=== PATIENT | male | born 1935 | race Caucasian/White ===

== ENCOUNTER 2017-09-10 11:07 | Emergency (ER) | payer MEDICARE ==
[~2017-09-10 11:07] MED LIST: ISOVUE-370 76%-LOCM 1 ML ONE
[2017-09-10 11:23] LABS: #Basophils 0.1 thou/uL (0.0-0.2); #Eosinphils 0.2 thou/uL (0.0-0.7); #Monocytes 0.6 thou/uL (0.11-0.59); #Neutrophils 8.5 thou/uL (1.40-6.50); %Basophils 0.6 % (0.0-1.0); %Lymphocytes 9.3 % (21.0-51.0); %Monocytes 5.8 % (0.0-10.0); %Neutrophils 82.4 % (42.0-75.0); Hemoglobin 15.4 g/dL (14.0-18.0); Mean Corpuscular HGB CONC 33.7 g/dL (32.0-36.0); Mean Corpuscular Hemoglobin 31.2 pg (27.0-31.0); Mean Corpuscular Volume 92.6 fl (80.0-94.0); Mean Platelet Volume 7.4 fL (7.4-10.4); Platelet Count 213 thou/uL (130-400); RBC Distribution Width 13.1 % (11.5-14.5); Red Blood Cell (RBC) Count 4.93 mill/uL (4.70-6.10); White Blood Cell (WBC) Count 10.3 thou/uL (4.8-10.8)
[2017-09-10 11:45] LABS: ALT (SGPT) 22 U/L (8-55); AST (SGOT) 25 U/L (5-34); Albumin 4.3 g/dL (3.4-4.8); Alkaline Phosphatase 92 U/L (40-150); Anion Gap 12 mmol/L (10-20); BUN (Urea Nitrogen) 15 mg/dL (8.4-25.7); Bilirubin, Total 0.5 mg/dL (0.2-1.2); Calc. Creatinine Clearance 0 mL/min (70-130); Calcium 9.4 mg/dL (7.8-10.44); Carbon Dioxide 26 mmol/L (23-31); Chloride 104 mmol/L (98-107); Estimated GFR-MDRD 49; Globulin 3.2 g/dL (2.4-3.5); Glucose 131 mg/dL (83-110); Lipase 19 U/L (8-78); Potassium 4.4 mmol/L (3.5-5.1); Protein, Total 7.5 g/dL (5.8-8.1); Sodium 138 mmol/L (136-145)
[2017-09-10 12:12] LABS: CKMB 4.1 ng/mL (0-6.6); Troponin I 0.014 ng/mL (< 0.028)
--- NOTE | 2017-09-10 13:04 | ULT ---
RIGHT UPPER QUADRANT ULTRASOUND: Date: 09/10/17 HISTORY: Abdominal pain, nausea. FINDINGS: The liver demonstrates increased echogenicity consistent with fatty infiltration. There is a 1.5 x 1. 1 x 1.2 cm focal hyperechoic lesion without shadowing in the liver close to the gallbladder. No intra hepatic ductal dilatation is seen. No gallstones, gallbladder wall thickening, or pericholecystic fluid is identified. The common duct m easures 12.0 mm in diameter. The pancreas is not visualized due to overlying bowel gas. No free fluid is seen in Morison's pouch. There is a 2.3 cm cyst in the right kidney. IMPRESSION: 1. Fatty liver. 2. Probable 1.5 cm liver hemangioma. 3. No evidence of cholelithiasis. 4. Right renal cyst. POS: THAIS
[2017-09-10 13:24] LABS: Bilirubin Negative (Negative); Blood, Urine Negative (Negative); Clarity CLEAR (Clear); Glucose, Urine (Dipstick) Negative (Negative); Leukocyte Trace (Negative); Nitrite Negative (Negative); Protein, Urine (Dipstick) Trace mg/dL (Neg-Trace); Specific Gravity, Urine 1.018 (1.002-1.036); Urobilinogen 0.2 mg/dL (0.2-1.0)
[2017-09-10 13:26] LABS: Bacteria/HPF None Seen HPF (None Seen); Hyaline Casts/LPF 0-3 HYALINE CAST LPF (0-3 Hyaline); RBC/HPF 0-3 HPF (0-3); Squamous Epithelial 0-3 HPF (0-3); WBC/HPF 0-3 HPF (0-3)
[2017-09-10] MEDS ORDERED: Acetaminophen/Codeine 30-300mg Tablet ONE (13:55)
--- NOTE | 2017-09-10 15:10 | CT ---
CT ABDOMEN AND PELVIS WITH IV CONTRAST: Date: 09/10/17 HISTORY: Abdominal pain and nausea. Abdominal pain is worse on the right side and radiates down and around low er abdomen. FINDINGS: There is mild scarring in the lung bases. A small bilateral hernia is present. No free air, free flui d, or lymphadenopathy seen in the abdomen or pelvis. The liver, spleen, pancreas, and adrenal glands appear normal. There is a 2.0 cm cyst in the superior pole of the right kidney. There are multiple calculi in the left kidney, the largest measuring about 6.0 mm. No calculi are seen in the ureters or urinary bladder. No hydroureteronephrosis noted on eit her side. No calcified gallstones are seen. There are vascular calcifications without evidence of aneurysmal dilatation of the abdominal aorta. B ilateral fat-containing inguinal hernia are present. A normal appearing appendix is noted. There is p rominence of the wall of the urinary bladder which may be due to incomplete distention or wall thicke phil. Degenerative changes are present in the spine. IMPRESSION: 1. Small hiatal hernia. 2. Right renal cyst. 3. Nonobstructing left renal calculi. 4. No evidence of appendicitis. 5. Incomplete distention versus wall thickening of urinary bladder. POS: TARSHA
== END 2017-09-10 15:35 | disposition home or self-care (01) ==
LOC: ERS 11:07
DX: R10.11 Right upper quadrant pain (principal); R10.31 Right lower quadrant pain; I48.91 Unspecified atrial fibrillation; N40.0 Benign prostatic hyperplasia without lower urinary tract symptoms; Z79.899 Other long term (current) drug therapy
CPT/HCPCS: 74177; 76705; 80053; 81003; 81015; 82553; 83605; 83690; 84484; 85025; 87086; 93005; 94760; 96360

== ENCOUNTER 2018-01-29 17:52 | Observation (INO) | payer MEDICARE ==
[2018-01-29 18:50] LABS: #Basophils 0.1 thou/uL (0.0-0.2); #Eosinphils 0.4 thou/uL (0.0-0.7); #Lymphocytes 1.6 thou/uL (1.20-3.40); #Monocytes 0.6 thou/uL (0.11-0.59); #Neutrophils 5.5 thou/uL (1.40-6.50); %Basophils 0.8 % (0.0-1.0); %Eosinophils 4.5 % (0.0-10.0); %Lymphocytes 19.3 % (21.0-51.0); %Monocytes 7.3 % (0.0-10.0); %Neutrophils 68.2 % (42.0-75.0); Hemoglobin 15.2 g/dL (14.0-18.0); Mean Corpuscular HGB CONC 35.6 g/dL (32.0-36.0); Mean Corpuscular Hemoglobin 31.9 pg (27.0-31.0); Mean Corpuscular Volume 89.8 fL (78.0-98.0); Mean Platelet Volume 7.3 fL (7.4-10.4); Platelet Count 206 thou/uL (130-400); RBC Distribution Width 13.5 % (11.5-14.5); Red Blood Cell (RBC) Count 4.75 mill/uL (4.70-6.10); White Blood Cell (WBC) Count 8.1 thou/uL (4.8-10.8)
[2018-01-29 19:19] LABS: Troponin I Less than 0.010 ng/mL (< 0.028)
[2018-01-29 23:11] LABS: Troponin I 0.016 ng/mL (< 0.028)
[2018-01-30 01:24] VITALS: BMI 26.2
[2018-01-30] MEDS ORDERED: Nitroglycerin 0.4 MG TAB (25 Tab Bottle) SL PRN (01:29)
[2018-01-30] MEDS ORDERED: Ondansetron HCl/PF 4 MG/2 ML Vial IVP PRN (01:30)
[2018-01-30] MEDS ORDERED: Ondansetron ODT 4 MG TAB SL PRN (01:30)
[2018-01-30] MEDS ORDERED: Acetaminophen 325 MG TAB PO PRN (01:46)
[2018-01-30 02:44] LABS: Troponin I Less than 0.010 ng/mL (< 0.028)
[2018-01-30] MEDS: Piperacillin/Tazobactam 3.375 GM in Sodium Chloride 0.9% 100 ML IVPB SCH ×2 (05:15→12:21)
[2018-01-30 05:59] LABS: #Basophils 0.1 thou/uL (0.0-0.2); #Eosinphils 0.4 thou/uL (0.0-0.7); #Lymphocytes 1.7 thou/uL (1.20-3.40); #Monocytes 0.8 thou/uL (0.11-0.59); #Neutrophils 6.1 thou/uL (1.40-6.50); %Basophils 0.7 % (0.0-1.0); %Lymphocytes 18.5 % (21.0-51.0); %Monocytes 8.9 % (0.0-10.0); %Neutrophils 67.9 % (42.0-75.0); Mean Corpuscular HGB CONC 33.3 g/dL (32.0-36.0); Mean Corpuscular Hemoglobin 30.2 pg (27.0-31.0); Mean Corpuscular Volume 90.4 fL (78.0-98.0); Mean Platelet Volume 7.5 fL (7.4-10.4); Platelet Count 207 thou/uL (130-400); RBC Distribution Width 13.6 % (11.5-14.5); Red Blood Cell (RBC) Count 4.98 mill/uL (4.70-6.10)
[2018-01-30 06:11] LABS: Anion Gap 13 mmol/L (10-20); BUN (Urea Nitrogen) 22 mg/dL (8.4-25.7); Calc. Creatinine Clearance 44 mL/min (70-130); Calcium 9.1 mg/dL (7.8-10.44); Carbon Dioxide 25 mmol/L (23-31); Chloride 106 mmol/L (98-107); Estimated GFR-MDRD 44; Glucose 77 mg/dL (83-110); Potassium 4.2 mmol/L (3.5-5.1); Sodium 140 mmol/L (136-145)
--- NOTE | 2018-01-30 06:30 | HP ---
CHIEF COMPLAINT: Heart racing. HISTORY OF PRESENT ILLNESS: This patient is an 82-year-old male who states that he has been feeling episodes of tiredness for about 1 week. He states he has been paying more attention to it over the l ast couple of days. With these episodes that tend to come and go he does not have any chest pain, sh ortness of breath or lightheadedness, but does feel some mild dizziness and some discomfort in his ja w and the back of his neck. He was living with this, but today he had some sensation that his heart was racing when he woke up. Apparently it settled down and he went on to try some breakfast and afte r he left the restaurant his symptoms recurred, so he presented to the emergency department in [facility]. The patient also reports that a couple of days ago he had some dark stools and states that happened a gain yesterday. In questioning the patient, it is clear that his stools were not actually black, but were just simply dark brown. He denies any abdominal pain, cramping or changes in his bowel habits. The patient did present to the emergency department in [place] where a digital rectal exam pro duced guaiac positive stool. REVIEW OF SYSTEMS: The patient has some issues with urinary frequency causing some sleep disturbance . He reports that he feels like he has to work harder to swallow, but denies any aspiration, coughin g or choking. He does have the above-mentioned palpitations and some occasional lower extremity asia a. He has a mild cough related to some sinus drainage. Occasionally, has felt a little short of maritza ath with the above symptoms. Occasionally, has little wheezing. He does have some urinary frequency and nocturia every 2 hours, which is longstanding for him. He also reports occasional tingling in h is hands and feet. Other than that the patient's 10 system review is negative except for those thing s mentioned in the history of present illness. PAST MEDICAL HISTORY: Notable for a pacemaker placement. His diplomatic interpreter is Dr. Camacho Mcclure. He reports that he has no known coronary disease and had a stress test a couple years ago prior to e pacemaker placement. He has BPH and urethral strictures for which he dilates himself from time to time. He also reports that he had a colonoscopy a couple years ago that was fine as well. PAST SURGICAL HISTORY: Laparoscopic Gildardo fundoplication and TURP x2. FAMILY HISTORY: Father at 96. Mother at 94. SOCIAL HISTORY: The patient is a nonsmoker, nondrinker, nondrug user. He is a . His surroga te decision maker would be his son, Christian. CODE STATUS: Full code. PHYSICAL EXAMINATION: VITAL SIGNS: Temperature 98.3, pulse 71, respirations 16, O2 sat 98% on room air, BP is 176/98, rose chris, his blood pressures in the emergency department actually ranged from 92-136 systolic. GENERAL APPEARANCE: Age appropriate male. He is awake, alert, oriented, pleasant and cooperative, i n no distress. HEENT: PERRL. No OP lesions. NECK: Supple and symmetric without lymphadenopathy. CARDIOVASCULAR: Regular rate and rhythm without murmurs, gallops or rubs. CHEST: Lungs are clear to auscultation bilaterally. Good chest wall expansion and air exchange. ABDOMEN: Soft, nontender, nondistended. He does have a ventral hernia. There are no masses palpabl e. No organomegaly. EXTREMITIES: Warm and dry with no edema. LABORATORY DATA: White blood cell count 7.5, hemoglobin 15.1, platelets 215. INR was 1.4, PTT 37. Chemistries notable for a creatinine of 1.69, which is above his prior reading of 1.48 on 01/26/2018. In [place] his troponin level was 2.567. TSH was 4. Urinalysis shows greater than 50 to too numerous to count white blood cells, 4+ bacteria, moderate leukocyte esterase. Again, the Hemoccult from [place] [facility] was positive. Chest x-ray shows borderline vascular congestio n. ASSESSMENT AND PLAN: 1. Palpitations. The patient had some tachycardia subjectively. That has appeared to have resolved at this point. He has a pacemaker and will ask for interrogation. In the meantime, keep him on a t elemetry monitor. 2. Elevated troponin. This appears to be spurious as the patient had an elevated troponin in [facility], but since coming to our emergency department here, he has had 2 subsequent levels that were w ell within the normal range. We will check a third and continue him on the court monitor as well . 3. Heme positive stools. The patient reported dark, but not black stools. He does have a history o f a Gildardo fundoplication and certainly may have some upper gastrointestinal bleeding, but has no anand dence of drop in hemoglobin or GI symptoms to suggest that he is bleeding briskly in any way. The rachael bhakta is on Xarelto, which certainly increases the risk of some minor bleeding. We will continue to monitor his hemoglobin. 4. Benign prostatic hypertrophy with some urethral stricture. The patient has a self-dilator that vanessa mclaughlin uses from time to time. He indicated that he actually uses a toothpick to help get it initially in sert and certainly has some risk of developing urinary tract infection from the instrumentation. Vanessa mclaughlin received a dose of Zosyn in the emergency department in [place] and we will continue that. Benjamin whitaker to follow up on cultures from [place].
[2018-01-30] MEDS ORDERED: hydrALAZINE 20 MG/ML VIAL SLOW IVP PRN (13:14)
[2018-01-30] MEDS ORDERED: cloNIDine 0.1 MG TAB PO PRN (13:14)
--- NOTE | 2018-01-30 14:36 | PDOC.PN ---
- Subjective Encounter Start Date: 01/30/18 Encounter Start Time: 14:34 Subjective: c/o weakness and palpitations on and off. only marginally better -: PPM shows repeted A-fib w RVR - Objective Resuscitation Status: Resuscitation Status FULL:Full Resuscitation MAR Reviewed: Yes Vital Signs & Weight: Vital Signs (12 hours) Temp Pulse Resp BP BP Pulse Ox 01/30/18 12:20 97.7 F 70 20 177/99 H 100 01/30/18 09:50 81 174/101 H 01/30/18 08:26 97.5 F L 74 20 01/30/18 07:31 97.5 F L 74 20 185/100 H 100 01/30/18 05:15 98.0 F 71 16 129/100 H 98 Weight Weight 183 lb 1.6 oz I&O: 01/29/18 01/30/18 01/31/18 06:59 06:59 06:59 Intake Total 200 100 Output Total 400 Balance -200 100 Result Diagrams: 01/30/18 01:42 01/30/18 01:42 Additional Labs: Laboratory Tests 09/10/17 01/26/18 01/29/18 11:13 16:42 15:00 Creatinine 1.38 H 1.48 H 1.69 H 01/30/18 01:42 Creatinine 1.53 H labs reviewed Phys Exam - Physical Examination Constitutional: NAD HEENT: PERRLA, moist MMs, sclera anicteric, oral pharynx no lesions Neck: no nodes, no JVD, supple, full ROM Respiratory: no wheezing, no rales, no rhonchi, clear to auscultation bilateral Cardiovascular: RRR, no significant murmur, no rub Gastrointestinal: soft, non-tender, no distention, positive bowel sounds Musculoskeletal: no edema, pulses present Neurological: non-focal, normal sensation, moves all 4 limbs Psychiatric: normal affect, A&O x 3 Skin: no rash Dx/Plan (1) Paroxysmal atrial fibrillation with rapid ventricular response Code(s): I48.0 - PAROXYSMAL ATRIAL FIBRILLATION Status: Acute (2) Near syncope Status: Acute (3) UTI (urinary tract infection) Status: Acute (4) Chronic anticoagulation Code(s): Z79.01 - USP (CURRENT) USE OF ANTICOAGULANTS Status: Chronic (5) BPH (benign prostatic hyperplasia) Code(s): N40.0 - BENIGN PROSTATIC HYPERPLASIA WITHOUT LOWER URINRY TRACT SYMP Status: Chronic - Plan continue antibiotics, PT/OT, out of bed/ambulate, DVT proph w/SCDs H/H stable.armand hemorroidal bleed.FOBT not very sensistive for GI bleed -: will consult Cardiology for a-fib w RVR.cont amiodarone,Digoxin,xarelto -: OT,PT eval. -: cont flomax and proscar.check orthostatics -: am labs. If stable.DC in am * . Review of Systems - Review of Systems Constitutional: weakness, malaise. negative: fever, chills, sweats, other Respiratory: negative: Cough, Dry, Shortness of Breath, Hemoptysis, SOB with Excertion, Pleuritic Pain, Sputum, Wheezing Cardiovascular: negative: chest pain, palpitations, orthopnea, paroxysmal nocturnal dyspnea, edema, light headedness, other Gastrointestinal: negative: Nausea, Vomiting, Abdominal Pain, Diarrhea, Constipation, Melena, Hematochezia, Other Genitourinary: negative: Dysuria, Frequency, Incontinence, Hematuria, Retention , Other Musculoskeletal: negative: Neck Pain, Shoulder Pain, Arm Pain, Back Pain, Hand Pain, Leg Pain, Foot Pain, Other Skin: negative: Rash, Lesions, Jalen, Bruising, Other Neurological: negative: Weakness, Numbness, Incoordination, Change in Speech, Confusion, Seizures, Other - Medications/Allergies Allergies/Adverse Reactions: Allergies Allergy/AdvReac Type Severity Reaction Status Date / Time atorvastatin Allergy Unknown Verified 01/30/18 03:50 Uyzhkeb-Uyb-Ark Reductase Allergy Unknown Verified 01/30/18 03:50 Inhibitor Medications: Current Medications Acetaminophen (Tylenol) 650 mg PO Q4H PRN PRN Reason: Headache/Fever or Pain Amiodarone HCl (Cordarone) 200 mg PO TID BOOKER Clonidine (Catapres) 0.1 mg PO Q4H PRN PRN Reason: SBP>160 Digoxin (Lanoxin) 0.125 mg PO HS BOOKER Finasteride (Proscar) 5 mg PO HS BOOKER Hydralazine HCl (Apresoline) 10 mg SLOW IVP Q4H PRN PRN Reason: SBP>170 Piperacillin Sod/Tazobactam (Sod 3.375 gm/ Sodium Chloride) 100 mls @ 200 mls/ hr IVPB Q6HR [facility] Last Admin: 01/30/18 12:21 Dose: 100 mls Metoprolol Succinate (Toprol Xl) 25 mg PO NOW BOOKER Stop: 01/30/18 16:00 Metoprolol Succinate (Toprol Xl) 25 mg PO DAILY BOOKER Rivaroxaban (Xarelto) 20 mg PO HS [facility] Sodium Chloride (Flush - Normal Saline) 10 ml IVF PRN PRN PRN Reason: Saline Flush Tamsulosin HCl (Flomax) 0.4 mg PO HS BOOKER
[2018-01-30] MEDS ORDERED: Amiodarone 200 MG TAB PO SCH ×2 (15:00→21:00)
[2018-01-30 15:38] VITALS: BP 135/75; TEMP 97.5
--- NOTE | 2018-01-30 16:23 | CON ---
DATE OF CONSULT: 01/30/18 The patient is a pleasant 82-year-old gentleman who presents for evaluation of palpitations and weakn ess. The patient has apparent history of atrial fibrillation. He is on chronic anticoagulation ther apy. He also has a history of a pacemaker placement. The patient states approximately a week ago st arted feeling weak and tired. He noted that at times that his pulse had been very rapid. He went to the emergency room for further evaluation. The patient not have any chest pain or dyspnea. The pat ient was noted to have an elevated troponin level and sent for further evaluation. PAST MEDICAL HISTORY: Significant for: 1. Atrial fibrillation. 2. Hypertension. 3. Benign prostatic hypertrophy. PAST SURGICAL HISTORY: He has had a Gildardo fundoplication and TURP. SOCIAL HISTORY: Nonsmoker, does not consume alcohol. FAMILY HISTORY: No strong family history of coronary artery disease. ALLERGIES: STATIN therapy. MEDICATIONS ON ADMISSION: He takes amiodarone 200 daily, Xarelto 20 daily, finasteride 5 daily, digo mario alberto 0.125 daily, Flomax 0.4 daily. REVIEW OF SYSTEMS: Ten-point system otherwise unremarkable. No history of bright red blood per rect um, dysuria or hematuria. PHYSICAL EXAMINATION: GENERAL: This is a well-developed gentleman in no acute distress with a blood pressure 177/99. NECK: Showed no jugular distention, no carotid bruits. LUNGS: Clear to auscultation. HEART: Regular rate and rhythm, normal S1, S2, no murmurs. ABDOMEN: Distended. EXTREMITIES: Showed no edema. Varicose veins were noted. SKIN: Warm and dry. NEUROLOGIC: Nonfocal. VASCULAR: Radial pulses are 2+. LABORATORY DATA: White blood count 9.0, hemoglobin 15.0, hematocrit 45.0 and his platelets were 207. Sodium 140, potassium 4.2, chloride 106, carbon dioxide 25, BUN 22, creatinine 1.53. Troponin less than 0.01. His EKG revealed an electronic atrial pacemaker with a nonspecific interventricular cond uction delay. IMPRESSION: 1. Paroxysmal atrial fibrillation with rapid ventricular response. 2. Elevated troponin level with normal MB. 3. History of electronic pacemaker. 4. Hypertension. 5. Urinary tract infection. This gentleman presents with very symptomatic atrial fibrillation. He is on amiodarone therapy. Wou ld recommend increasing the dose of this medication. We will also add a low dose of Toprol to try to decrease the incidence he is in atrial fibrillation. Interrogation of his pacemaker is having frequ ent atrial fibrillation. In addition, he had an elevated troponin level, but a repeat showed no daiana vation with normal CK-MB. The patient can follow up with his primary bullard machine operator, Dr. Mcclure. PLAN: 1. Increase amiodarone to 200 t.i.d. 2. Add low dose beta jonathan therapy. I will follow this patient with you through his hospitalizati on.
[2018-01-30] MEDS ORDERED: Tamsulosin HCl 0.4 MG CAP PO SCH (21:00)
[2018-01-30] MEDS ORDERED: Finasteride 5 MG TAB PO SCH (21:00)
[2018-01-30] MEDS ORDERED: Digoxin 0.125 MG TAB PO SCH (21:00)
[2018-01-30] MEDS ORDERED: Rivaroxaban 10 MG TAB PO SCH (21:00)
--- NOTE | 2018-01-31 02:54 | DIS ---
DATE OF ADMISSION: 01/29/2018 DATE OF DISCHARGE: 01/30/2018 CONDITION AT THE TIME OF DISCHARGE: Stable and improved. PRIMARY CARE PHYSICIAN: Elbert Mehta D.O. PRIMARY ENVIRONMENTAL MANAGER: Dr. Mcclure. DISCHARGE DIAGNOSES: 1. Atrial fibrillation with rapid ventricular rate. 2. Elevated troponin level secondary to #1. 3. History of electronic pacemaker. 4. Hypertension. 5. Urinary tract infection. DISCHARGE MEDICATIONS: Amiodarone 200 mg p.o. daily, levofloxacin 500 mg p.o. daily, and metoprolol succinate 25 mg daily. He is to resume his digoxin 0.125 mg daily, and tamsulosin 0.4 mg daily, yeny steride 5 mg daily, and Xarelto 20 mg daily. Please note that the amiodarone dose has been increased to 200 mg daily, 200 mg 3 times a day. CONSULTATIONS: Cardiology, Dr. Barnard. HISTORY OF PRESENTING ILLNESS: Mr. Ramirez is a very pleasant 82-year-old male with past medical hist ory of atrial fibrillation on chronic anticoagulation as well as history of pacemaker placement, BPH, and hypertension, who recently moved to the area: presented to the emergency room with complaints of palpitation and generalized weakness. He also had complaints of some dark stools and FOBT was posit herbert in the ER. His EKG did not show any arrhythmias at the time of presentation. He was admitted to telemetry for further evaluation. Please see admission history and physical for further detail. He was found to have a urinary tract infection as well for which he was started on IV antibiotic and ur ine was sent for culture. HOSPITAL COURSE: The patient's pacemaker was interrogated and was found to have paroxysmal atrial fi brillation with RVR intermittently. He was seen by Cardiology, Dr. Barnard, who adjusted his medica tions. He was in sinus rhythm throughout his hospitalization otherwise. His amiodarone dose was inc reased and he was started on metoprolol. H&H remained stable. Cardiac enzymes were trended and were negative. The patient was cleared by Cardiology for discharge. At this time, he does not have any evidence of gastrointestinal bleed. Xarelto was not held. He most likely has hemorrhoidal bleed. I have instru cted him to keep an eye on his stools and return to the emergency room if he notices any bright red b lood in his stools or any melena. He verbalized understanding. He is instructed to follow up with his own corporate executive, Dr. Mcclure as soon as possible. He was seen and examined prior to discharge. Please see hospitalist progress note from today's date for further detail. Note to the primary care physician, please follow up the results of the urine culture for sensitivity results.
== END 2018-01-30 17:06 | disposition home or self-care (01) ==
LOC: ERS 17:52 → 2SW 21:00
PROVIDERS: ADMIT Internal Medicine; ATTEND Internal Medicine
DX: I48.0 Paroxysmal atrial fibrillation (principal); R79.89 Other specified abnormal findings of blood chemistry; R19.5 Other fecal abnormalities; N40.0 Benign prostatic hyperplasia without lower urinary tract symptoms; N35.9 Urethral stricture, unspecified; I10 Essential (primary) hypertension; N39.0 Urinary tract infection, site not specified; Z79.01 Long term (current) use of anticoagulants; Z79.899 Other long term (current) drug therapy; Z88.8 Allergy status to other drugs, medicaments and biological substances
CPT/HCPCS: 80048; 84484 ×2; 85025 ×2; 86850; 86900; 86901; 87086; 93005; 94760; 96365; 96366; 99285; G0378; 36415; J2543; J7050

== ENCOUNTER 2018-02-20 14:53 | Outpatient (CLI) | payer MEDICARE | END 2018-02-20 14:54 | disposition home or self-care (01) | LOC: BICULT 14:53 | PROVIDERS: ATTEND Internal Medicine Nephrology | DX: N18.9 Chronic kidney disease, unspecified (principal) | CPT/HCPCS: 76770 ==

== ENCOUNTER 2018-07-23 10:44 | Outpatient (CLI) | payer MEDICARE ==
--- NOTE | 2018-07-23 12:33 | ULT ---
RENAL ULTRASOUND: INDICATION: Benign prostatic hypertrophy. The right kidney measures 12.4 cm length. The left kidney measures 10.1 cm length. No hydronephrosi s. Small cyst superior pole right kidney measures 2.0 cm. The bladder is mildly distended. There i s mild bladder wall thickening. The prevoid bladder volume was recorded at 141 cc. IMPRESSION: 1. Small right renal cyst. 2. Mild bladder thickening. POS: [facility]
== END 2018-07-23 10:45 | disposition home or self-care (01) ==
LOC: BICULT 10:44
PROVIDERS: ATTEND Urology
DX: N40.1 Benign prostatic hyperplasia with lower urinary tract symptoms (principal); N99.115 Postprocedural fossa navicularis urethral stricture; N28.1 Cyst of kidney, acquired; N32.89 Other specified disorders of bladder
CPT/HCPCS: 76770

== ENCOUNTER 2018-11-22 13:22 | Outpatient (CLI) | payer MEDICARE | END 2018-11-22 13:23 | disposition home or self-care (01) | LOC: ULT 13:22 | PROVIDERS: ATTEND Family Medicine | DX: R79.89 Other specified abnormal findings of blood chemistry (principal); R53.83 Other fatigue; I08.8 Other rheumatic multiple valve diseases | CPT/HCPCS: 93306 ==

== ENCOUNTER 2018-12-24 16:35 | Outpatient (CLI) | payer MEDICARE ==
[2018-12-24 17:48] LABS: Hemoglobin 14.3 g/dL (14.0-18.0); Mean Corpuscular HGB CONC 34.3 g/dL (32.0-36.0); Mean Corpuscular Hemoglobin 31.3 pg (27.0-31.0); Mean Corpuscular Volume 91.4 fL (78.0-98.0); Mean Platelet Volume 7.2 fL (7.4-10.4); Platelet Count 224 thou/uL (130-400); RBC Distribution Width 13.2 % (11.5-14.5); Red Blood Cell (RBC) Count 4.58 mill/uL (4.70-6.10); White Blood Cell (WBC) Count 7.4 thou/uL (4.8-10.8)
[2018-12-24 17:54] LABS: INR-International Normal Ratio 1.5; PTT 32.4 SEC (22.9-36.1); Prothrombin Time 17.7 SEC (12.0-14.7)
[2018-12-24 18:05] LABS: Anion Gap 14 mmol/L (10-20); BUN (Urea Nitrogen) 20 mg/dL (8.4-25.7); Calc. Creatinine Clearance 0 mL/min (70-130); Carbon Dioxide 27 mmol/L (23-31); Chloride 103 mmol/L (98-107); Estimated GFR-MDRD 46; Glucose 85 mg/dL (83-110); Potassium 4.1 mmol/L (3.5-5.1); Sodium 140 mmol/L (136-145)
== END 2018-12-24 16:36 | disposition home or self-care (01) ==
LOC: LABBT 16:35
PROVIDERS: ATTEND Urology
DX: Z01.818 Encounter for other preprocedural examination (principal); N40.1 Benign prostatic hyperplasia with lower urinary tract symptoms; R33.9 Retention of urine, unspecified; N48.6 Induration penis plastica; N99.115 Postprocedural fossa navicularis urethral stricture; N20.0 Calculus of kidney; I48.0 Paroxysmal atrial fibrillation; R35.1 Nocturia; Z78.9 Other specified health status
CPT/HCPCS: 80048; 81001; 85027; 85610; 85730; 87077; 87086; 87186; 93005; 93010

== ENCOUNTER 2019-01-02 11:37 | Outpatient (CLI) | payer MEDICARE ==
--- NOTE | 2019-01-02 14:34 | CT ---
ABDOMEN CT WITHOUT CONTRAST PELVIC CT WITHOUT CONTRAST: COMPARISON: 09/10/2017. HISTORY: Renal calculi. Difficulty urinating. The patient had recent catheterization. Small renal calculus. FINDINGS: ABDOMEN CT: Chronic changes in the middle lobe, lingula, and both lower lobes. Heart size is within normal limit s. No significant pericardial fluid. The descending thoracic aorta and abdominal aorta have atheros clerotic disease. No aneurysm or periaortic fat stranding. Limited evaluation of the solid organs due to lack of IV contrast. Relatively no solid organ abnorma lity. No gastrohepatic, retrocrural, or periportal lymphadenopathy. No mesenteric mass, lymphadenopathy, free air, or free fluid. Calcification of the right renal pelvis may be due to atherosclerotic disease or possibly a partially calcified renal artery aneurysm. There is a stable calcification in the upper pole of the left kidn ey measuring 0.4 cm. There is a 2nd 4 mm calculus in the mid pole of the left kidney. Hypodensity i n the upper pole of the right kidney has an attenuation coefficient of 7 Hounsfield units compatible with a 1.4 cm cyst. Bilaterally, no hydronephrosis or significant perinephric fat stranding. Bilate ral ureters have a normal caliber. No hydroureter, periureteral fat stranding, or ureterolithiasis. No mesenteric mass, lymphadenopathy, free air, or free fluid. Limited evaluation of the alimentary canal by lack of oral contrast. No evidence of bowel obstructio n. Ileocecal junction is normal. Normal caliber appendix. Scattered fecal material in a nondistend ed, nondilated colon. Diverticulosis, without evidence of diverticulitis. CT PELVIS: No mass, lymphadenopathy, free air, or free fluid. Early catheter decompresses the urinary bladder. IMPRESSION: 1. Nonobstructing calculi in the left kidney. 2. Bilaterally, no evidence of obstructive uropathy. 3. Simple cyst emanating from the upper pole of the right kidney. POS: OFF
== END 2019-01-02 11:38 | disposition home or self-care (01) ==
LOC: BICCT 11:37
PROVIDERS: ATTEND Urology
DX: N20.0 Calculus of kidney (principal); N28.1 Cyst of kidney, acquired
CPT/HCPCS: 74176

== ENCOUNTER 2019-01-09 07:32 | Day surgery (SDC) | payer MEDICARE ==
[2018-12-24 16:53] VITALS: BMI 27.2
[2019-01-09] MEDS ORDERED: Sodium Chloride 0.9% 100 ML ONE (09:03)
[2019-01-09] MEDS ORDERED: cefTRIAXone\\ROCEPHIN 2 GM VIAL ONE (09:03)
[2019-01-09 09:41] LABS: INR-International Normal Ratio 0.9; Prothrombin Time 12.6 SEC (12.0-14.7)
[2019-01-09] MEDS ORDERED: Fentanyl 100 MCG/2 ML VIAL ONE (09:46)
[2019-01-09] MEDS ORDERED: Hyoscyamine Sulfate SL 0.125 mg Tablet ONE (09:58)
[2019-01-09] MEDS ORDERED: Iothalamate Meglumine 60% 50 ML VIAL FS ONE (09:59)
--- NOTE | 2019-01-09 11:48 | OP ---
DATE OF PROCEDURE: 01/09/2019 PREOPERATIVE DIAGNOSES: 1. An 83-year-old male with history of transurethral resection of the prostate in the remote past with recurrent fossa navicularis, bulbar urethral stricture. 2. History of multiple urethral stricture dilatation with recurrence. POSTOPERATIVE DIAGNOSES: 1. An 83-year-old male with history of transurethral resection of the prostate in the remote past with recurrent fossa navicularis, bulbar urethral stricture. 2. History of multiple urethral stricture dilatation with recurrence. PROCEDURE PERFORMED: Cystoscopy, urethral stricture dilatation, dilation of fossa navicular stricture with Redkey sounds, 18-Finnish 10 mL urethral Early catheter placement to leg bag, gravity bag, 22-Finnish 10 mL Councill tip suprapubic tube placement. ANESTHESIA: LMA. COMPLICATIONS: None apparent. ESTIMATED BLOOD LOSS: Minimal/none. INTRAOPERATIVE FINDINGS: 1. Fossa navicularis stricture, diffuse urethral fibrosis, multiple bulbar proximal penile urethral stricture caliber approximately 14-Finnish to 10-Finnish. 2. TUR defect with no evidence of bladder neck contracture, left lateral regrowth adenoma, minimally obstructing. 3. Bladder grossly unremarkable. INDICATIONS FOR PROCEDURE AND HISTORY: Mr. Ramirez is an 83-year-old male, who recently transferred care from Dr. Garcia. The patient has undergone multiple urethral stricture dilatation with recurrence. He was told to cath himself 3 to 4 times a day, however, has to struggle to get the catheter in. I recently saw the patient, had significant difficulty passing a 14-Finnish catheter as his meatal caliber was 10-Finnish. Although, it was dilated with David sounds, I could not pass about more than 14-Finnish urethral Early catheter. Due to his advanced age and concern regarding ongoing compliance with CICs as needed, moreover concerned regarding false passages, I informed the patient that it is safer for him at this juncture to consider a suprapubic tube. He agrees and desires to proceed. Risks and complications and indications for the procedure was reviewed with the patient in detail including, but not limited to, bleeding, pain, infection, injury to adjacent organs such as bowel contents, sepsis, PE, DVT, perioperative morbidity, mortality, and urosepsis. He has been fully informed regarding recurrent nature of his diffuse urethral stricture, due to fibrosis. All questions were answered to his satisfaction. He desired to proceed. DESCRIPTION OF PROCEDURE: After an informed consent was signed, the patient was taken to the operating room, placed in a dorsal lithotomy position with the genital area prepped and draped in the usual surgical sterile fashion. His pre-existing catheter was removed and a 17-Finnish scope was passed. There was resistance at the level of the fossa navicularis, which was passively dilated and the scope was negotiated under direct visualization. We passed the scope bypassing the urethral stricture at the bulbar and proximal penile region about 14-Finnish caliber, which I was able to pass and passively dilate. The prostatic urethra was inspected demonstrating TUR defect, but no evidence of bladder neck contracture. There was deviation of the bladder neck due to history of TUR. There was left lateral regrowth; however, this was minimally obstructing. Bladder was entered, which demonstrated no evidence of bladder tumor, stones, or lesions of concerns. UOs were identified with clear efflux of urine. At this time, I distended the bladder to the level of the umbilicus. Intraoperative ultrasound was performed demonstrating bladder distended well beyond the point of suprapubic tube placement 2 fingerbreadths above the pubic symphysis. No bowel contents were seen. Using an 18-gauge spinal needle, we passed it to the level where 2 fingerbreadths above the pubic symphysis that was aspirating clear cystoscopic fluid. An 11 blade was then utilized to make a skin incision and a [place] suprapubic trocar was placed. Through the trocar, we passed a 0.35 Super Stiff wire to the level of the bladder under direct visualization. Using NephroMax 30-Finnish 12-cm balloon, we dilated the tract. Subsequently, we were able to pass a 22-Finnish 10 mL Councill tip suprapubic tube without issues. A 10 mL was insufflated into the balloon and his SP tube was then plugged. This was sutured to skin using 2-0 nylon. Sterile dressing was applied. At this time, we re-staged his urethra. I passively dilated his strictures to 22-Finnish, 20-Finnish, 25-Finnish using a cystoscopic sheath. His meatus was then dilated to 28-Finnish with Redkey sounds. An 18-Finnish 10 mL Early catheter subsequently passed to the level of the bladder with ease and this was attached to leg bag, gravity bag. He will come and see me in 2-week interval, to remove his urethral Early catheter and change his SP tube to a 30 mL balloon and will be transitioned to a gravity bag. He was discharged with Omnicef for a course of 5 days. Job ID: [id number] MTDD
[2019-01-09] MEDS ORDERED: Phenazopyridine HCl 97.5 MG TABLET ONE (11:50)
[2019-01-09] MEDS ORDERED: Oxybutynin 5 MG TAB ONE (11:50)
--- NOTE | 2019-01-09 11:54 | ULT ---
EXAM: US Portable PROVIDED CLINICAL HISTORY: Evaluation of urinary bladder prior to suprapubic catheter placement. COMPARISON: None FINDINGS/IMPRESSION: Sonographic guidance was provided for Dr. Laurent for placement of a suprapubic catheter. Correla tion with intraoperative imaging and findings is recommended.
--- NOTE | 2019-01-11 11:20 | RAD ---
XR Abdomen 1 View/KUB History: Preop testing Comparison: CT January 02, 2019 Findings: Marked gaseous distention sigmoid colon. Small calculi project over the left renal collecti ng system. Lung bases appear clear. Impression: Marked gaseous distention of the sigmoid colon.
== END 2019-01-09 16:00 | disposition home or self-care (01) ==
LOC: SDC 07:32
PROVIDERS: ATTEND Urology
PROC: 0T9B80Z Drainage of Bladder with Drainage Device, Via Natural or Artificial Opening Endoscopic (ICD-10-PCS; principal; 2019-01-09)
DX: N35.912 Unspecified bulbous urethral stricture, male (principal); N36.8 Other specified disorders of urethra; N40.1 Benign prostatic hyperplasia with lower urinary tract symptoms; R39.14 Feeling of incomplete bladder emptying; K21.9 Gastro-esophageal reflux disease without esophagitis; I48.0 Paroxysmal atrial fibrillation; I25.10 Atherosclerotic heart disease of native coronary artery without angina pectoris; Z95.0 Presence of cardiac pacemaker; Z87.891 Personal history of nicotine dependence; Z88.8 Allergy status to other drugs, medicaments and biological substances; Z79.1 Long term (current) use of non-steroidal anti-inflammatories (NSAID); Z79.899 Other long term (current) drug therapy
CPT/HCPCS: 36415; 74018; 76000; 85610; 85730; C1758; C1769; C2627; J0696; J3010; J3490

== ENCOUNTER 2019-01-14 19:30 | Outpatient (CLI) | payer MEDICARE | END 2019-01-14 19:31 | disposition home or self-care (01) | LOC: SLEEPLAB 19:30 | PROVIDERS: ATTEND Family Medicine | DX: G47.33 Obstructive sleep apnea (adult) (pediatric) (principal); R06.83 Snoring; R53.83 Other fatigue | CPT/HCPCS: 95810 ==

== ENCOUNTER 2019-03-19 09:04 | Outpatient (CLI) | payer MEDICARE | END 2019-03-19 09:05 | disposition home or self-care (01) | LOC: CTENTCT 09:04 | PROVIDERS: ATTEND Specialist | DX: J32.9 Chronic sinusitis, unspecified (principal) | CPT/HCPCS: 70486 ==

== ENCOUNTER 2019-12-13 09:22 | Outpatient (CLI) | payer MEDICARE ==
--- NOTE | 2019-12-13 11:56 | ULT ---
LEFT LOWER EXTREMITY VENOUS DOPPLER ULTRASOUND: DATE: 12/13/2019. HISTORY: Cellulitis, pain, swelling, and edema. TECHNIQUE: Multiplanar, matos scale, sonographic imaging venous structures of the left lower extremity obtained w ith color flow and spectral analysis. FINDINGS: Left common femoral vein, greater saphenous vein, profunda femoral vein, femoral vein, popliteal vein , and posterior tibial vein are patent. Normal blood flow, augmentation, and compression. No eviden ce for deep vein thrombosis of the left lower extremity. IMPRESSION: No evidence for deep venous thrombosis of the left lower extremity. POS: ROHAN
== END 2019-12-13 09:23 | disposition home or self-care (01) ==
LOC: ULT 09:22
PROVIDERS: ATTEND Family Medicine
DX: M79.605 Pain in left leg (principal); M79.89 Other specified soft tissue disorders; L03.116 Cellulitis of left lower limb

== ENCOUNTER 2021-08-26 10:46 | Outpatient (CLI) | payer MEDICARE | END 2021-08-26 10:47 | disposition home or self-care (01) | LOC: CT 10:46 | PROVIDERS: ATTEND Family Medicine | DX: R55 Syncope and collapse (principal) | CPT/HCPCS: 70450 ==

== ENCOUNTER 2023-01-26 16:09 | Emergency (ER) | payer MEDICARE, OTHER ==
[2023-01-26 16:57] LABS: #Basophils 0.1 thou/uL (0.0-0.2); #Eosinphils 0.4 thou/uL (0.0-0.7); #Monocytes 0.6 thou/uL (0.11-0.59); #Neutrophils 3.9 thou/uL (1.40-6.50); %Basophils 1.4 % (0.0-1.0); %Eosinophils 5.5 % (0.0-10.0); %Lymphocytes 24.2 % (21.0-51.0); %Monocytes 8.8 % (0.0-10.0); %Neutrophils 59.8 % (42.0-75.0); Hemoglobin 13.2 g/dL (14.0-18.0); Mean Corpuscular HGB CONC 34.3 g/dL (32.0-36.0); Mean Corpuscular Volume 93.2 fl (78.0-98.0); Mean Platelet Volume 9.7 fL (7.4-10.4); Platelet Count 216 10x3/uL (130-400); RBC Distribution Width 13.3 % (11.5-14.5); Red Blood Cell (RBC) Count 4.13 mill/uL (4.70-6.10); White Blood Cell (WBC) Count 6.6 10x3/uL (4.8-10.8)
[2023-01-26 17:22] LABS: ALT (SGPT) 17 U/L (8-55); AST (SGOT) 20 U/L (5-34); Albumin 4.7 g/dL (3.4-4.8); Alkaline Phosphatase 57 U/L (40-110); Anion Gap 15 mmol/L (10-20); BUN (Urea Nitrogen) 20 mg/dL (8.4-25.7); Bilirubin, Total 0.3 mg/dL (0.2-1.2); Calc. Creatinine Clearance 0 mL/min (70-130); Calcium 10.2 mg/dL (7.8-10.44); Carbon Dioxide 27 mmol/L (23-31); Chloride 103 mmol/L (98-107); Estimated GFR 41; Globulin 2.9 g/dL (2.4-3.5); Glucose 94 mg/dL (83-110); Lipase 86 U/L (8-78); Potassium 3.9 mmol/L (3.5-5.1); Protein, Total 7.6 g/dL (5.8-8.1); Sodium 141 mmol/L (136-145)
== END 2023-01-26 19:16 | disposition home or self-care (01) ==
LOC: ERS 16:09
DX: R53.83 Other fatigue (principal); N18.2 Chronic kidney disease, stage 2 (mild); I48.91 Unspecified atrial fibrillation; Z87.891 Personal history of nicotine dependence
CPT/HCPCS: 36415; 74177; 80053; 83605; 83690; 83880; 84484; 85025; 87040; 87149; 93005

== ENCOUNTER 2023-09-22 14:09 | Outpatient (CLI) | payer OTHER | END 2023-09-22 14:10 | disposition home or self-care (01) | LOC: ULT 14:09 | PROVIDERS: ATTEND Urology | DX: N20.0 Calculus of kidney (principal); N28.1 Cyst of kidney, acquired; Z93.6 Other artificial openings of urinary tract status | CPT/HCPCS: 74018; 76770 ==

== ENCOUNTER 2024-03-06 12:41 | Outpatient (CLI) | payer OTHER | END 2024-03-06 12:42 | disposition home or self-care (01) | LOC: SCSRAD 12:41 | PROVIDERS: ATTEND Physician Assistant | DX: R07.89 Other chest pain (principal); V89.2XXA Person injured in unspecified motor-vehicle accident, traffic, initial encounter ==

== ENCOUNTER 2024-07-30 13:13 | Outpatient (CLI) | payer OTHER | END 2024-07-30 13:14 | disposition home or self-care (01) | LOC: BICRAD 13:13 | PROVIDERS: ATTEND Nurse Practitioner Family | DX: L03.116 Cellulitis of left lower limb (principal); M79.605 Pain in left leg; M79.89 Other specified soft tissue disorders | CPT/HCPCS: 36415; 80053; 83880; 85025; 87070; 87205 ==